=== PATIENT | male | born 1990 | race African-American/Black ===

== ENCOUNTER 2018-01-30 17:06 | Emergency (ER) | payer MEDICAID ==
[~2018-01-30] VITALS: Ht 182.9 cm; Wt 81.0 kg
[2018-01-30 19:51] LABS: BASOPHILS % 0.8 % (0.0-2.0); HEMATOCRIT. 45.5 % (42.0-52.0); HEMOGLOBIN. 15.2 g/dL (14.0-18.0); MEAN CORPUSCULAR VOLUME 87.1 fL (80.0-94.0); MEAN PLATELET VOLUME 7.3 fl (7.4-10.4); MONOCYTES % 7.2 % (2.0-8.0); PLATELET 320 x1000/uL (130-400); RED BLOOD CELL COUNT 5.23 mill/uL (4.7-6.1); RED CELL DISTRIBUTION WIDTH 14.1 % (11.6-14.6)
[2018-01-30 19:55] LABS: CHLORIDE 104 mEq/L (98-107)
[2018-01-30 19:57] LABS: INR 1.1; PROTHROMBIN TIME 11.6 sec (9.4-11.6)
[2018-01-30 20:00] LABS: ETHANOL BLOOD 33 mg/dL
[2018-01-31 06:32] VITALS: BP 126/68
== END 2018-01-31 06:35 | disposition home or self-care (01) ==
LOC: ER 17:10 → EDBD 17:10 → ER 01-31 06:35
DX: T51.0X1A Toxic effect of ethanol, accidental (unintentional), initial encounter (principal); G92 Toxic encephalopathy; F10.129 Alcohol abuse with intoxication, unspecified; Y90.9 Presence of alcohol in blood, level not specified; Y92.512 Supermarket, store or market as the place of occurrence of the external cause
CPT/HCPCS: 36415; 70450; 80053; 85025; 85610; 99285; G0482; Z7610